=== PATIENT | female | born 1960 | race Caucasian/White ===

== ENCOUNTER → 2017-01-18 | Outpatient (CLI) | payer BC ==
[~2017-01-18] MED LIST: ACHYD1T PO; AGM875T PO; HYOS0.1216 PO; METH10TA5 PO; NITR50CA4 PO; OXYB5TAB9 PO; PHEN200T16 PO
--- OUTSIDE RECORDS SUMMARY | 2017-01-18 14:58 | XMS REPORT | Continuity of Care Document ---
Author Author [facility] Organization [facility] Address Unknown Phone Unavailable Allergies Active Description Code Type Severity Reaction Onset Reported/Identified Relationship to Patient Clinical Status Yes SULFA SULFA Unknown N/A 01/28/2011 Medications Problems Date Dx Coded Attending Type Code Diagnosis Diagnosed By 08/29/2010 Ot 853.00 08/29/2010 Ot 959.01 08/29/2010 Ot E000.8 08/29/2010 Ot E812.0 01/28/2011 Ot 891.1 01/28/2011 Ot E000.8 01/28/2011 Ot E849.8 01/28/2011 Ot E897 01/28/2011 Ot E922.9 06/20/2013 REINIER CELESTIN MD Ot 592.1 CALCULUS OF URETER 09/26/2013 REINIER CELESTIN MD Ot 592.9 URINARY CALCULUS NOS 11/07/2013 PRISCILLA OAKES DO Ot 242.90 THYROTOX NOS NO CRISIS 12/06/2014 PRISCILLA OAKES DO Ot 242.20 02/21/2015 MOOK OAKES DOISON Uri Ot 242.20 04/27/2015 Ot V76.12 04/27/2015 VAMSI OROSCO Ot 242.90 04/27/2015 REINIER CELESTIN MD Ot 592.1 04/27/2015 REINIER CELESTIN MD Ot V72.83 04/27/2015 REINIER CELESTIN MD Ot V74.8 04/27/2015 Ot 592.9 04/27/2015 Ot 242.90 04/27/2015 PRISCILLA OAKES DO Ot 242.20 04/27/2015 MOOK OAKES DOISON Uri Ot 242.20 04/27/2015 MOOK OAKES DOISON L Ot 242.20 04/27/2015 Ot 242.20 04/27/2015 Ot 780.8 04/27/2015 OAKES DO, RPISCILLA L Ot 242.20 04/27/2015 OAKES DO, PRISCILLA L Ot 244.9 04/27/2015 OAKES DO, PRISCILLA L Ot 780.8 05/13/2015Y DO, PRISCILLA L Ot 244.9 05/13/2015 OAKES DO, PRISCILLA L Ot 780.8 07/17/2015 Ot V76.12 07/17/2015 VAMSI OROSCO Ot 242.90 07/17/2015 SABI TRINIDAD, REINIER A Ot 592.1 07/17/2015 SABI TRINIDAD, REINIER A Ot V72.83 07/17/2015 SABI TRINIDAD, REINIER A Ot V74.8 07/17/2015 Ot 592.9 07/17/2015 Ot 242.90 07/17/2015Y DO, PRISCILLA L Ot 242.20 07/17/2015Y DO, PRISCILLA L Ot 242.20 07/17/2015Y DO, PRISCILLA L Ot 242.20 07/17/2015 Ot 242.20 07/17/2015 Ot 780.8 07/17/2015Y DO, PRISCILLA L Ot 242.20 07/17/2015Y DO, PRISCILLA L Ot 244.9 07/17/2015Y DO, PRISCILLA L Ot 780.8 07/17/2015Y DO, PRISCILLA L Ot 244.9 07/17/2015Y DO, PRISCILLA L Ot 704.00 07/17/2015Y DO, PRISCILLA L Ot 729.82 07/24/2015Y DO, PRISCILLA L Ot 244.9 07/24/2015Y DO, PRISCILLA L Ot 704.00 07/24/2015Y DO, PRISCILLA L Ot 729.82 08/06/2015Y DO, PRISCILLA L Ot 790.29 01/12/2016Y DO, PRISCILLA L Ot E03.9 01/12/2016Y DO, PRISCILLA L Ot E11.9 04/06/2016Y DO, PRISCILLA L Ot E03.9 HYPOTHYROIDISM, UNSPECIFIED 04/06/2016Y DO, PRISCILLA L Ot E11.9 TYPE 2 DIABETES MELLITUS WITHOUT COMPLIC 04/11/2016 DO, PRISCILLA L Ot E03.9 HYPOTHYROIDISM, UNSPECIFIED 04/11/2016 DO, PRISCILLA L Ot E11.9 TYPE 2 DIABETES MELLITUS WITHOUT COMPLIC 04/29/2016 DO, PRISCILLA L Ot E03.9 HYPOTHYROIDISM, UNSPECIFIED 04/29/2016 DO, PRISCILLA L Ot E11.9 TYPE 2 DIABETES MELLITUS WITHOUT COMPLIC 07/09/2016 DO, PRISCILLA L Ot E03.9 HYPOTHYROIDISM, UNSPECIFIED 07/27/2016 DO, PRISCILLA L Ot E03.9 HYPOTHYROIDISM, UNSPECIFIED 10/13/2016 DO, PRISCILLA L Ot E03.9 HYPOTHYROIDISM, UNSPECIFIED 10/13/2016 DO, PRISCILLA L Ot E11.9 TYPE 2 DIABETES MELLITUS WITHOUT COMPLIC 10/27/2016 Ot V76.12 OTH SCREEN MAMMO-MALIGN NEOPLASM OF ITZ 10/27/2016 VAMSI OROSCO Ot 242.90 THYROTOX NOS NO CRISIS 10/27/2016 SABI TRINIDAD, REINIER Pinedo Ot 592.1 CALCULUS OF URETER 10/27/2016 REINIER CELESTIN MD Ot V72.83 EXAM PRE-OPERATIVE NEC 10/27/2016 SABI TRINIDAD, REINIER Pinedo Ot V74.8 SCREEN-BACTERIAL DIS NEC 10/27/2016 Ot 592.9 URINARY CALCULUS NOS 10/27/2016 Ot 242.90 THYROTOX NOS NO CRISIS 10/27/2016 OAKES DO, PRISCILLA L Ot 242.20 TOX MULTNOD GOIT NO WAYNE 10/27/2016 DO, PRISCILLA L Ot 242.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 MULTNOD GOIT NO WAYNE 10/27/2016 DO, PRISCILLA L Ot 242.20 TOX MULTNOD GOIT NO WAYNE 10/27/2016 Ot 242.20 TOX MULTNOD GOIT NO WAYNE 10/27/2016 Ot 780.8 GENERALIZED HYPERHIDROSIS 10/27/2016 DO, PRISCILLA L Ot 242.20 TOX MULTNOD GOIT NO WAYNE 10/27/2016 DO, PRISCILLA L Ot 244.9 HYPOTHYROIDISM NOS 10/27/2016 OAKES DO, PRISCILLA L Ot 780.8 GENERALIZED HYPERHIDROSIS 10/27/2016 DO, PRISCILLA L Ot 244.9 HYPOTHYROIDISM NOS 10/27/2016Y DO, PRISCILLA L Ot 704.00 ALOPECIA NOS 10/27/2016 DO, PRISCILLA L Ot 729.82 CRAMP IN LIMB 10/27/2016 OAKES DO, PRISCILLA L Ot 790.29 OTHER ABNORMAL GLUCOSE 10/27/2016 DO, PRISCILLA L Ot E03.9 HYPOTHYROIDISM, UNSPECIFIED 10/27/2016 DO, PRISCILLA L Ot E11.9 TYPE 2 DIABETES MELLITUS WITHOUT COMPLIC 10/27/2016 DO, PRISCILLA L Ot E03.9 HYPOTHYROIDISM, UNSPECIFIED 10/27/2016 DO, PRISCILLA L Ot E11.9 TYPE 2 DIABETES MELLITUS WITHOUT COMPLIC 10/27/2016 DO, PRISCILLA L Ot E03.9 HYPOTHYROIDISM, UNSPECIFIED 10/27/2016 DO, PRISCILLA L Ot E03.9 HYPOTHYROIDISM, UNSPECIFIED 10/27/2016 DO, PRISCILLA L Ot E11.9 TYPE 2 DIABETES MELLITUS WITHOUT COMPLIC Procedures Results Test Result Range THYROID STIMULATING HORMONE - 07/08/16 13:26 THYROID STIMULATING HORMONE 1.19 u[iU]/mL 0.35-4.94 Encounters ACCT No. Visit Date/Time Discharge Status Pt. Type Provider Facility Loc./Unit Complaint [id number] 07/17/2015 13:11:00 2014 23:59:59 [facility] Outpatient VIOLETTE JACKSON PRISCILLA L [facility] LAB ELEVATED BLOOD SUGAR [id number] 07/10/2015 16:12:00 2014 23:59:59 [facility] Outpatient VIOLETTE DO, PRISCILLA L [facility] LAB MUSCLE CRAMPS,HAIR LOSS, HYPOTHROIDISM [id number] 04/21/2015 17:20:00 2014 23:59:59 [facility] Outpatient VIOLETTE DO, PRISCILLA L [facility] LAB HYPERHIDROSIS, HYPOTHYROIDISM [id number] 02/04/2015 13:45:00 2014 23:59:59 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 [id number] 07/12/2014 17:18:00 2013 23:59:59 [facility] Outpatient MOOK OAKES DOISON L [facility] LAB TOX MULTINODULR GOITER W/O THYROTOX CRISIS/STORM [id number] 04/05/2014 14:27:00 2013 23:59:59 [facility] Outpatient VIOLETTE JACKSON PRISCILLA L [facility] LAB MULTINODULER GOITER W/O THYROTOX [id number] 08/23/2013 13:23:00 2013 00:01:00 DIS Outpatient PRISCILLA OAKES DO L [facility] LAB HYPOTHYROIDISM [id number] 07/03/2013 14:24:00 2012 00:01:00 DIS Outpatient REINIER CELESTIN MD [facility] LAB STONES [id number] 06/20/2013 09:02:00 2012 13:15:00 DIS Outpatient REINIER CELESTIN MD [facility] SDC LEFT URETEAL STONE [id number] 06/19/2013 15:32:00 2012 23:59:59 [facility] Outpatient REINIER CELESTIN MD [facility] PREOP LEFT URETERAL STONE [id number] 06/14/2013 11:12:00 2012 23:59:59 CLS Outpatient VAMSI OROSCO [facility] RAD HYPERACTIVE THYROID [id number] 10/12/2016 16:59:00 ACT Outpatient MOOK OAKES DOISON L [facility] LAB DIABETES MELLITUS TYPE II [id number] 07/08/2016 13:01:00 ACT Outpatient MOOK OAKES DOISON L [facility] LAB HYPOTHYROIDISM [id number] 04/05/2016 11:13:00 ACT Outpatient MOOK OAKES DOISON L [facility] LAB DIABETES MELLITUS TYPE II HYPOTHYROIDISM [id number] 12/26/2015 12:46:00 ACT Outpatient PRISCILLA OAKES DO [facility] LAB HYPOTHYROIDISM,DIABETES TYPE II [id number] 04/27/2015 02:02:00 Document Registration [id number] 01/08/2015 16:11:00 Document Registration [id number] 11/08/2013 00:00:00 Document Registration [id number] 09/27/2013 00:00:00 Document Registration [id number] 01/28/2011 12:47:00 Document Registration [id number] 08/29/2010 14:17:00 Document Registration
[2017-01-18 15:24] LABS: ANION GAP 10 MMOL/L (5-14); BLOOD UREA NITROGEN 13 MG/DL (7-18); BUN/CREATININE RATIO 15; CALCIUM 9.3 MG/DL (8.5-10.1); CARBON DIOXIDE 25 MMOL/L (21-32); CHLORIDE 105 MMOL/L (98-107); CHOLESTEROL 171 MG/DL (< 200); CREATININE SERUM 0.84 MG/DL (0.60-1.30); DIRECT LDL 98 MG/DL (1-129); GFR ESTIMATED > 60; GLUCOSE 124 MG/DL (70-105); POTASSIUM 4.2 MMOL/L (3.6-5.0); SODIUM 140 MMOL/L (135-145); TRIGLYCERIDES 155 MG/DL (<150); VLDL CHOLESTEROL 31 MG/DL (5-40)
[2017-01-18 15:45] LABS: THYROID STIMULATING HORMONE 0.77 UIU/ML (0.35-4.94)
== END ==
LOC: LAB 14:54
PROVIDERS: ATTEND Internal Medicine Endocrinology, Diabetes & Metabolism
DX: E11.9 Type 2 diabetes mellitus without complications (principal); E03.9 Hypothyroidism, unspecified
CPT/HCPCS: 36415; 80048; 80061; 84443

== ENCOUNTER → 2017-12-08 | Outpatient (CLI) | payer BC | LOC: LAB 16:47 | PROVIDERS: ATTEND Internal Medicine Endocrinology, Diabetes & Metabolism | DX: E11.9 Type 2 diabetes mellitus without complications (principal); E03.9 Hypothyroidism, unspecified | CPT/HCPCS: 36415; 82043; 84443 ==

== ENCOUNTER → 2018-02-15 | Outpatient (CLI) | payer BC | LOC: LAB 16:55 | PROVIDERS: ATTEND Internal Medicine Endocrinology, Diabetes & Metabolism | DX: E11.9 Type 2 diabetes mellitus without complications (principal); E03.9 Hypothyroidism, unspecified | CPT/HCPCS: 36415; 82043; 84443 ==